=== PATIENT | male | born 1965 | race Caucasian/White ===

== ENCOUNTER 2024-10-18 12:57 | Outpatient (AMB) | payer BC, SELFPAY ==
--- NOTE | 2024-10-18 13:11 | ORTHONT_ITS ---
Vital signs 10/18/24 13:12 Height 1.88 m Height Method Stated Weight 94.914 kg Weight Measurement Method Standing Scale BMI 26.9 BP 149/87 H Blood Pressure Source Automatic Cuff Blood Pressure Location Left Upper Arm Position Sitting Respiration 18 Pulse 68 Pulse Source Monitor Temp 97.1 F Temp Source Temporal Artery Scan Pulse Oximetry (%) 98 Oxygen Delivery Method Room Air Med/Allergies Allergies & Medications Allergies No Known Allergies Allergy (Verified 10/18/24 13:12) Medication Reconciliation propranolol 20 mg tablet 20 mg PO DAILY 04/16/23 [History Confirmed 10/18/24] tramadol 50 mg tablet 50 mg PO BID PRN Pain 04/16/23 [History Confirmed 10/18/24] Held on 04/16/23. Instructions: Resume on 04/17/23. naproxen 500 mg tablet 500 mg PO BID #60 tabs 10/18/24 [Rx] Exam Exam Patient is in no acute distress and is cooperative with the examination today. Breathing is nonlabored. In no respiratory distress. Patient has no paraspinal tenderness. Spinal deformity cannot be appreciated. The gait of the patient is nonantalgic Bilateral extremities were evaluated and demonstrates sensation intact to light touch. Palpable pedal pulses are present. No significant edema is present. Bilateral knees were examined and the patient has full strength and range of motion.. The right hip was examined. Patient was able to flex to 90 degrees, adduct to 30 degrees, abduct to 40 degrees, internally rotate to 20 degrees, and externally rotate to 20 degrees. Patient has a negative logroll. Stinchfield is negative. The patient is Tender over the greater trochanter The left hip was examined. Patient was able to flex to 90 degrees, adduct to 30 degrees, abduct to 40 degrees, internally rotate to 20 degrees, and externally rotate to 20 degrees. Patient has a negative logroll. The stinchfield is negative. Patient is tender over the greater trochanter His x-rays are over 3-1/2 years old. This demonstrates a left recon nail and mild arthritis on his x-rays in 2020 in [place] [facility] Assessment and Plan Problem List (1) Trochanteric bursitis of both hips: Status: Acute Plan: Patient is a 59-year-old male with bilateral trochanteric bursitis. His pain is directly on the side of his hip and we need to see x-rays as it has been over 3 and half years since His x-rays. We will see him back in approximately 1 week with x-rays. 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 Level 3 ([id number]) MA Intake Visit Data Collection New Patient or Established: New Patient (never been to [facility]) Reason for Visit:: BILATERAL HIP PAIN Seen by Clinical Staff ONLY (RN/MA): No Customer Service Teller Required: No PCP or OBGYN visit in last 3 months: Yes Hx Now: No Do You Feel Safe at Home: Yes Authorities Contacted: N/A Questionairres Past Medical History Past Medical History Have you ever been diagnosed with any of the following: Neurological Problems Seizures: No Cardiology Problems Congestive Heart Failure: No Hypertension: Yes Respiratory Problems Chronic Obstructive Pulmonary Disease (COPD): No Smoking: No Smoking Exposure: No Genital/Urinary Problems Renal Disease: No Head,Eye,Nose,Throat Problems Blind: Yes (LEFT EYE) Endocrine Problems Diabetes Mellitus Type 1: No Diabetes Mellitus Type 2: No Other Problems Blood Transfusions: No Anesthesia Reactions: No Chicken Pox: No Measles: No Mumps: No Cancer: No Subjective Visit Visit for: new patient Immunization / Flu Flu Vaccine in the Last 12 Months: Yes Flu Vaccine Exclusion Criteria: Already Received History of Present Illness Chief complaint: Bilateral hip pain Reid is a pleasant 59-year-old male with bilateral hip pain. The pain is primarily on the sides of his hip. He is very active. He saw Dr. Borrero in the past where they tried hip injections.He is not on any anti-inflammatories. He reports the pain is starting to increase. He has a lot of difficulty sleeping on his side. Pain Pain level (0-10): 9 Pain duration: COMES AND GOES Pain location: anterior Pain quality: sharp and aching Pain timing: increases with activity Associated signs & symptoms: none Ambulatory data Ambulatory device: none Treatments Improvement with previous injections: No Improvement with PT: No Improvement with NSAIDS: no Review of Systems Review of Systems: All systems negative unless otherwise noted in HPI.
[2024-10-18 13:12] VITALS: BP 149/87; PULSE 68; RESP 18; TEMP 36.2; O2SAT 98; BMI 26.9
== END 2024-10-18 13:41 | disposition home or self-care (01) ==
PROVIDERS: PCP Internal Medicine; Referring Provider Internal Medicine; Supervising Provider Orthopaedic Surgery Adult Reconstructive Orthopaedic Surgery; Visit Provider Orthopaedic Surgery Adult Reconstructive Orthopaedic Surgery
DX: M70.61 Trochanteric bursitis, right hip (principal); M70.62 Trochanteric bursitis, left hip; I10 Essential (primary) hypertension
CPT/HCPCS: 99203; G0463

== ENCOUNTER 2024-11-01 08:55 | Outpatient (AMB) | payer BC, SELFPAY ==
[2024-11-01 09:10] VITALS: BP 160/89; PULSE 57; RESP 18; TEMP 36.7; O2SAT 98; BMI 27.2
--- NOTE | 2024-11-01 09:10 | ORTHONT_ITS ---
Vital signs 11/01/24 09:10 Height 1.88 m Height Method Stated Weight 96.275 kg Weight Measurement Method Standing Scale BMI 27.2 BP 160/89 H Blood Pressure Source Automatic Cuff Blood Pressure Location Right Upper Arm Position Sitting Respiration 18 Pulse 57 L Pulse Source Monitor Temp 98.0 F Temp Source Temporal Artery Scan Pulse Oximetry (%) 98 Oxygen Delivery Method Room Air Med/Allergies Allergies & Medications Allergies No Known Allergies Allergy (Verified 11/01/24 09:10) Medication Reconciliation propranolol 20 mg tablet 20 mg PO DAILY 04/16/23 [History Confirmed 11/01/24] tramadol 50 mg tablet 50 mg PO BID PRN Pain 04/16/23 [History Confirmed 11/01/24] Held on 04/16/23. Instructions: Resume on 04/17/23. naproxen 500 mg tablet 500 mg PO BID #60 tabs 10/18/24 [Rx Confirmed 11/01/24] Exam Exam Patient is in no acute distress and is cooperative with the examination today. Breathing is nonlabored. In no respiratory distress. Patient has no paraspinal tenderness. Spinal deformity cannot be appreciated. The gait of the patient is nonantalgic Bilateral extremities were evaluated and demonstrates sensation intact to light touch. Palpable pedal pulses are present. No significant edema is present. Bilateral knees were examined and the patient has full strength and range of motion.. The right hip was examined. Patient was able to flex to 90 degrees, adduct to 30 degrees, abduct to 40 degrees, internally rotate to 20 degrees, and externally rotate to 20 degrees. Patient has a negative logroll. Stinchfield is negative. The patient is Tender over the greater trochanter The left hip was examined. Patient was able to flex to 90 degrees, adduct to 30 degrees, abduct to 40 degrees, internally rotate to 20 degrees, and externally rotate to 20 degrees. Patient has a negative logroll. The stinchfield is negative. Patient is tender over the greater trochanter His x-rays are over 3-1/2 years old. This demonstrates a left recon nail and mild arthritis on his x-rays in 2020 in [place] imaging Assessment and Plan Problem List (1) Trochanteric bursitis of both hips: Status: Acute Plan: Patient is a 59-year-old male with bilateral trochanteric bursitis. His pain is directly on the side of his hip and we need to see x-rays as it has been over 3 and half years since His x-rays. he also has some pain in his groin. We will see him back in approximately 1 to 2 weeks with x-rays. Office Procedures GNS Level of Care Nursing/Assessment Patient Status: Established Patient Nursing Assessment/Reassesment: Medication Reconciliation, Update PMH in EMR and Vital Signs Coordination of Care: Complex Care and Chronic Disease 1-5, Education Complex Pt/Fam, Consent,records obtained, informed consent, Results/Orders obtained and Staff clarify orders Established Patient Charge Established Patient Point Assignment: 95 Established Patient Point Charge: EP Level 3 (80-115) MA Intake Visit Data Collection New Patient or Established: Established Patient (seen at [facility] within 3 years) Reason for Visit:: F/U XRAYS Seen by Clinical Staff ONLY (RN/MA): No Verbal consent obtained for Telemed visit?: No Hat Designer Required: No PCP or OBGYN visit in last 3 months: Yes Hx Now: No Do You Feel Safe at Home: Yes Authorities Contacted: N/A Questionairres Past Medical History Past Medical History Have you ever been diagnosed with any of the following: Neurological Problems Seizures: No Cardiology Problems Congestive Heart Failure: No Hypertension: Yes Respiratory Problems Chronic Obstructive Pulmonary Disease (COPD): No Smoking: No Smoking Exposure: No Genital/Urinary Problems Renal Disease: No Head,Eye,Nose,Throat Problems Blind: Yes (LEFT EYE) Endocrine Problems Diabetes Mellitus Type 1: No Diabetes Mellitus Type 2: No Other Problems Blood Transfusions: No Anesthesia Reactions: No Chicken Pox: No Measles: No Mumps: No Cancer: No Subjective Visit Visit for: follow up visit, knee and x-rays Immunization / Flu Flu Vaccine in the Last 12 Months: No Flu Vaccine Exclusion Criteria: No Exclusion Criteria History of Present Illness Chief complaint: F/U XRAYS Reid is a pleasant 59-year-old male with bilateral hip pain. The pain is primarily on the sides of his hip. He is very active. He saw Dr. Borrero in the past where they tried hip injections.He is not on any anti-inflammatories. He reports the pain is starting to increase. He has a lot of difficulty sleeping on his side. He obtained his x-rays from [facility] from what it sounds like. He did not bring a CD today which is problematic Pain Pain level (0-10): 2 Pain duration: COMES AND GOES Pain location: anterior Pain quality: other (specify) (SORENESS) Pain timing: increases with activity Associated signs & symptoms: none Ambulatory data Ambulatory device: none Treatments Improvement with previous injections: No Improvement with PT: No Improvement with NSAIDS: no Review of Systems Review of Systems: All systems negative unless otherwise noted in HPI.
== END 2024-11-01 09:33 | disposition home or self-care (01) ==
LOC: HODSRG 08:55
PROVIDERS: PCP Internal Medicine; Referring Provider Internal Medicine; Supervising Provider Orthopaedic Surgery Adult Reconstructive Orthopaedic Surgery; Visit Provider Orthopaedic Surgery Adult Reconstructive Orthopaedic Surgery
DX: M70.61 Trochanteric bursitis, right hip (principal); M70.62 Trochanteric bursitis, left hip; R10.30 Lower abdominal pain, unspecified; I10 Essential (primary) hypertension
CPT/HCPCS: 99213; G0463

== ENCOUNTER 2024-11-04 10:45 | Outpatient (AMB) | payer BC, SELFPAY ==
[2024-11-04 11:30] VITALS: BP 155/87; PULSE 53; RESP 18; TEMP 36.5; O2SAT 98; BMI 26.1
--- NOTE | 2024-11-04 11:30 | PD.ORTHCLVIS ---
Vital signs 11/04/24 11:30 Height 1.88 m Height Method Stated Weight 92.221 kg Weight Measurement Method Standing Scale BMI 26.1 BP 155/87 H Blood Pressure Source Automatic Cuff Blood Pressure Location Right Upper Arm Position Sitting Respiration 18 Pulse 53 L Pulse Source Monitor Temp 97.7 F Temp Source Temporal Artery Scan Pulse Oximetry (%) 98 Oxygen Delivery Method Room Air Med/Allergies Allergies & Medications Allergies No Known Allergies Allergy (Verified 11/04/24 11:31) Medication Reconciliation propranolol 20 mg tablet 20 mg PO DAILY 04/16/23 [History Confirmed 11/04/24] tramadol 50 mg tablet 50 mg PO BID PRN Pain 04/16/23 [History Confirmed 11/04/24] Held on 04/16/23. Instructions: Resume on 04/17/23. naproxen 500 mg tablet 500 mg PO BID #60 tabs 10/18/24 [Rx Confirmed 11/04/24] Exam Exam Patient is in no acute distress and is cooperative with the examination today. Breathing is nonlabored. In no respiratory distress. Patient has no paraspinal tenderness. Spinal deformity cannot be appreciated. The gait of the patient is nonantalgic Bilateral extremities were evaluated and demonstrates sensation intact to light touch. Palpable pedal pulses are present. No significant edema is present. Bilateral knees were examined and the patient has full strength and range of motion.. The right hip was examined. Patient was able to flex to 90 degrees, adduct to 30 degrees, abduct to 40 degrees, internally rotate to 20 degrees, and externally rotate to 20 degrees. Patient has a negative logroll. Stinchfield is negative. The patient is Tender over the greater trochanter The left hip was examined. Patient was able to flex to 90 degrees, adduct to 30 degrees, abduct to 40 degrees, internally rotate to 20 degrees, and externally rotate to 20 degrees. Patient has a negative logroll. The stinchfield is negative. Patient is tender over the greater trochanter His x-rays demonstrates a left recon nail and mild arthritis on his x-rays Based on his new imaging from [facility] imaging Assessment and Plan Problem List (1) Trochanteric bursitis of both hips: Status: Acute Plan: Patient is a 59-year-old male with bilateral trochanteric bursitis. His pain is directly on the side of his hip aWe discussed nonoperative treatment including naproxen, anti-inflammatories, injections and physical therapy. He would like bilateral hip injections today. Recommend hip bursa cortisone injectiosn as patient would like to proceed with conservative treatment at this time. The risks and benefits of the procedure were reviewed with the patient and patient gave verbal consent to continue with the procedure. Procedure: performed by Dr. Amanda Using sterile technique bilateral hip bursas were thoroughly prepped with alcohol prep, and approximately 1 cc of Kenalog 40 mg/mL and 4 cc of 1% Lidocaine was injected without resistance. This amount was performed for each bursa. The patient tolerated the procedure well. Office Procedures GNS Level of Care Nursing/Assessment Patient Status: Established Patient Nursing Assessment/Reassesment: Medication Reconciliation, Update PMH in EMR and Vital Signs Coordination of Care: Complex Care and Chronic Disease 1-5, Consent,records obtained, informed consent, Education Simp Pt/Fam, Results/Orders obtained and Staff clarify orders Established Patient Charge Established Patient Point Assignment: 90 Established Patient Point Charge: EP Level 3 (80-115) Surgical Proc/IM SQ injection Major Surgical Procedure: Yes (BILATERAL HIP INJECTION) Medication Given Medication Given Medication Given: Yes Documented Dose Given: 8 Route: Infiitration Medication Given Medication Given Medication Given: Yes Documented Dose Given: 2 Route: Infiitration Office Meds Xylocaine 10 mg/mL (1 %) injection solution Performing Provider: David Amanda MD Performing Location: [facility] Administered by: David Amanda MD on 11/04/24 13:05 Dose Route Admin Location Dispensed Lot Number Expiration Date [facility] [employer] Mender 40 mL Infiltration 40 mL [id number] 01/31/28 40994-369-45 REPLACED BY [facility] triamcinolone acetonide 40 mg/mL suspension for injection Performing Provider: David Amanda MD Performing Location: [facility] Administered by: David Amanda MD on 11/04/24 13:05 Dose Route Admin Location Dispensed Lot Number Expiration Date [facility] [employer] Mender 80 mg intra-articular 2 mL [id number] 06/01/26 3133-9250-24 TEVA PARENTERAL MA Intake Visit Data Collection New Patient or Established: Established Patient (seen at [facility] within 3 years) Reason for Visit:: xray results-hip Seen by Clinical Staff ONLY (RN/MA): No Housekeeping Associate Required: No PCP or OBGYN visit in last 3 months: Yes Hx Now: No Do You Feel Safe at Home: Yes Authorities Contacted: N/A Questionairres Past Medical History Past Medical History Have you ever been diagnosed with any of the following: Neurological Problems Seizures: No Cardiology Problems Congestive Heart Failure: No Hypertension: Yes Respiratory Problems Chronic Obstructive Pulmonary Disease (COPD): No Smoking: No Smoking Cessation Counseling: No Smoking Exposure: No Genital/Urinary Problems Renal Disease: No Head,Eye,Nose,Throat Problems Blind: Yes (LEFT EYE) Endocrine Problems Diabetes Mellitus Type 1: No Diabetes Mellitus Type 2: No Other Problems Blood Transfusions: No Anesthesia Reactions: No Chicken Pox: No Measles: No Mumps: No Cancer: No Subjective Visit Visit for: follow up visit and hip (bilat) Immunization / Flu Flu Vaccine in the Last 12 Months: Yes Flu Vaccine Exclusion Criteria: Already Received History of Present Illness Chief complaint: F/U XRAYS Reid is a pleasant 59-year-old male with bilateral hip pain. The pain is primarily on the sides of his hip. He is very active. He saw Dr. Borrero in the past where they tried hip injections.He is not on any anti-inflammatories. He reports the pain is starting to increase. He has a lot of difficulty sleeping on his side. Personal History Red flag PMH: none Pain Pain level (0-10): 7 Pain duration: +3 years Pain location: groin (hip) Pain quality: aching Pain timing: night Associated signs & symptoms: stiffness Ambulatory data Ambulatory device: none Walking distance (blocks): 0 Walking distance (minutes): 0 Treatments Number of previous injections: 2 Improvement with previous injections: No Number of Physical Therapy sessions: 0 Improvement with PT: No Improvement with NSAIDS: n/a Review of Systems Review of Systems: All systems negative unless otherwise noted in HPI.
== END 2024-11-04 11:55 | disposition home or self-care (01) ==
LOC: HODSRG 10:45
PROVIDERS: PCP Internal Medicine; Referring Provider Internal Medicine; Supervising Provider Orthopaedic Surgery Adult Reconstructive Orthopaedic Surgery; Visit Provider Orthopaedic Surgery Adult Reconstructive Orthopaedic Surgery
DX: M70.61 Trochanteric bursitis, right hip (principal); M70.62 Trochanteric bursitis, left hip; M25.552 Pain in left hip; I10 Essential (primary) hypertension
CPT/HCPCS: 20610; 99212; 99213; J3301; J3490; G0463